=== PATIENT | male | born 1965 | race Two or more races ===

== ENCOUNTER 2018-07-03 14:15 | Emergency (ER) | payer OTHER ==
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
[2018-07-03] MEDS ORDERED: predniSONE 20 MG TAB PO ONE (14:41)
[2018-07-03] MEDS ORDERED: ACETAMINOPHEN 500 MG TAB PO ONE (14:41)
[2018-07-03 15:15] LABS: PLATELET COUNT 155 10^3/uL (150-400)
--- NOTE | 2018-07-03 15:49 | CPEKG ---
Test Reason : OPEN Blood Pressure : / mmHG Vent. Rate : 090 BPM Atrial Rate : 091 BPM P-R Int : 161 ms QRS Dur : 092 ms QT Int : 357 ms P-R-T Axes : 025 -12 041 degrees QTc Int : 437 ms Sinus rhythm Probable anteroseptal infarct, old Confirmed by Isidoro Gauthier ([id number]) on 07/03/2018 3:48:36 PM Referred By: Isidoro Gauthier Confirmed By:Isidoro Gauthier
[2018-07-03 16:03] VITALS: BP 124/80
== END 2018-07-03 16:09 | disposition home or self-care (01) ==
DX: G51.0 Bell's palsy (principal); I34.1 Nonrheumatic mitral (valve) prolapse
CPT/HCPCS: 84484-ER; J7512

== ENCOUNTER 2018-07-05 09:49 | Emergency (ER) | payer OTHER ==
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
[2018-07-05 12:03] VITALS: BP 136/74
--- NOTE | 2018-07-05 13:35 | ASMTCMCOM ---
CM Note CM Note Notes: Appointment scheduled at the [facility] for ER follow up and to establish PCP care. This CM spoke with Jen at explaining that patient is Yoruba speaking only and will need assistance with follow up for Medicaid application. patient expresses availability at any time with no preference for a male or female provider This CM provided appointment details to patient with translation form instructional writerTasha: tomorrow, 07/06 at 0800. Check in at [facility] to see Priya Butler NP. ER report faxed to with confirmation. Date Signed: 07/05/2018 01:34 PM Electronically Signed By:Glenys Miller RN
== END 2018-07-05 12:01 | disposition home or self-care (01) ==
DX: G51.0 Bell's palsy (principal)